=== PATIENT | female | born 1985 | race Caucasian/White ===

== ENCOUNTER 2019-12-10 20:15 | Emergency (ER) | payer MEDICAID ==
[~2019-12-10] VITALS: Ht 160 cm; Wt 98.6 kg
[2019-12-10 20:24] VITALS: Ht 160 cm; Wt 98.6 kg
[2019-12-10 21:55] LABS: APPEARANCE HAZY (CLEAR); BILIRUBIN NEGATIVE (NEGATIVE); COLOR YELLOW (YELLOW); GLUCOSE NEGATIVE (NEGATIVE); KETONE NEGATIVE (NEGATIVE); NITRITE NEGATIVE (NEGATIVE); PROTEIN NEGATIVE (NEGATIVE); UROBILINOGEN NORMAL (NORMAL)
[2019-12-10 21:56] LABS: BACTERIA MANY /hpf (NEGATIVE); WHITE CELLS - URINE 25-50 /hpf (NEGATIVE)
[2019-12-10 21:57] LABS: MUCUS <1+ /lpf (NONE SEEN)
[2019-12-10] MEDS ORDERED: FLAGYL500 MG PO (22:07)
[2019-12-10] MEDS ORDERED: MACROBID100 MG PO (22:07)
[2019-12-10 22:34] VITALS: BP 104/56
== END 2019-12-10 22:22 | disposition home or self-care (01) ==
LOC: D.ER 20:15
PROVIDERS: Family Medicine
DX: N39.0 Urinary tract infection, site not specified (principal); A59.01 Trichomonal vulvovaginitis

== ENCOUNTER 2020-04-16 21:22 | Emergency (ER) | payer MEDICAID ==
[~2020-04-16] VITALS: Ht 160 cm; Wt 88.6 kg
[~2020-04-16 21:22] MED LIST: FLAGYL500 MG PO; MACROBID100 MG PO
[2020-04-16 21:33] VITALS: Ht 160 cm; Wt 88.6 kg
[2020-04-16] MEDS ORDERED: OMNICEF300 MG PO (21:45)
[2020-04-16] MEDS ORDERED: TYLENOL W/CODEI1 TAB PO (21:45)
[2020-04-16 22:19] VITALS: BP 107/80
[2020-04-17] MEDS ORDERED: CORTISPORIN OTI10 M1 EACH EAR (21:41)
== END 2020-04-16 22:19 | disposition home or self-care (01) ==
LOC: D.ER 21:22
DX: H60.13 Cellulitis of external ear, bilateral (principal); H66.93 Otitis media, unspecified, bilateral

== ENCOUNTER 2020-04-17 19:16 | Emergency (ER) | payer MEDICAID ==
[~2020-04-17] VITALS: Ht 160 cm; Wt 88.6 kg
[~2020-04-17 19:16] MED LIST changes: +OMNICEF300 MG PO; +TYLENOL W/CODEI1 TAB PO
[2020-04-17 19:22] VITALS: Ht 160 cm; Wt 88.6 kg
[2020-04-17] MEDS ORDERED: CORTISPORIN OTI10 M1 EACH EAR (21:41)
[2020-04-17 22:28] VITALS: BP 114/67
== END 2020-04-17 22:30 | disposition home or self-care (01) ==
LOC: D.ER 19:16
DX: H60.92 Unspecified otitis externa, left ear (principal)

== ENCOUNTER 2020-06-28 18:45 | Emergency (ER) | payer MEDICAID ==
[~2020-06-28] VITALS: Ht 160 cm; Wt 93.6 kg
[~2020-06-28 18:45] MED LIST changes: +CORTISPORIN OTI10 M1 EACH EAR
[2020-06-28 18:54] VITALS: Ht 160 cm; Wt 93.6 kg
[2020-06-28 19:15] LABS: BILIRUBIN NEGATIVE (NEGATIVE); GLUCOSE NEGATIVE (NEGATIVE); KETONE NEGATIVE (NEGATIVE); NITRITE NEGATIVE (NEGATIVE); UROBILINOGEN NORMAL (NORMAL)
[2020-06-28 19:17] LABS: HCG URINE NEGATIVE (NEGATIVE)
[2020-06-28 19:41] LABS: BASOPHILS 0.2 % (0-2); EOSINOPHILS 0.8 % (0-7); HEMATOCRIT 38.2 % (36.0-48.0); HEMOGLOBIN 12.6 g/dL (12-16); IMMATURE GRANULOCYTES 0.4 % (0-5); LYMPHOCYTES 26.3 % (15-50); MCH 30.2 pg (26.0-34.0); MCV 91.6 fL (80.0-100.0); MEAN PLATELET VOLUME 9.5 fL (7.4-10.4); MONOCYTES 7.4 % (2-11); NEUTROPHILS 64.9 % (40-80); PLATELET COUNT 270 10x3/uL (130-400); RBC 4.17 10x6/uL (4.00-5.40); RDW 12.7 % (11.5-14.5); WBC 9.6 10x3/uL (4.8-10.8)
[2020-06-28 19:47] LABS: INR 0.95 (0.85-1.17); PROTIME 12.6 SECONDS (11.6-15.0)
[2020-06-28 19:48] LABS: APTT 30.3 SECONDS (22.8-39.4)
[2020-06-28 19:50] LABS: CALC OSMOLALITY 274 mosm/kg (275-300); CARBON DIOXIDE 29.8 mmol/L (21.0-32.0); CHLORIDE - SERUM 100 mmol/L (98-107); CREATININE - SERUM 0.6 mg/dL (0.6-1.3); GLUCOSE 97 mg/dL (74-106); POTASSIUM - SERUM 3.3 mmol/L (3.5-5.1); SODIUM 137 mmol/L (136-145); UREA NITROGEN 16 mg/dL (7-18); eGFR NON AFRICAN AMERICAN > 90 mL/min (90-120)
[2020-06-28 20:07] LABS: ALBUMIN 3.7 g/dL (3.4-5.0); ALKALINE PHOSPHATASE 54 U/L (30-120); ALT (SGPT) 21 U/L (10-68); BILIRUBIN - TOTAL 0.32 mg/dL (0.2-1.3); CKMB 0.8 U/L (0.0-3.6); CREATINE KINASE 75 UL (21-215); PRO BNP 61 pg/mL (0-125); PROTEIN - SERUM 7.1 g/dL (6.4-8.2)
[2020-06-28 20:08] LABS: TROPONIN-I < 0.017 ng/mL (0.000-0.060)
[2020-06-28 22:11] VITALS: BP 130/77
== END 2020-06-28 22:19 | disposition home or self-care (01) ==
LOC: D.ER 18:45
PROVIDERS: Emergency Medicine
DX: R05 Cough (principal); R10.9 Unspecified abdominal pain; R06.02 Shortness of breath; R53.1 Weakness